=== PATIENT | male | born 2000 | race Caucasian/White ===

== ENCOUNTER 2019-06-20 16:02 | Emergency (ER) | payer BC ==
[~2019-06-20] VITALS: Ht 175.3 cm; Wt 64.9 kg
[2019-06-20 16:53] VITALS: BP 129/67
--- NOTE | 2019-06-20 17:00 | NUR ---
WANTS TO BE CHECKED BECAUSE HE'S BEEN DRINKING ALCOHOL LAST NIGHT WITH HIS ADD MEDICATION -VYVANCE. PATIENT A/OX4, BREATHING EVEN AND UNLABORED, NO SOB NOTED, NEEDS ATTENDED. KEPT COMFORTABLE.
--- NOTE | 2019-06-20 17:51 | NUR ---
Patient eloped with family member from facility. ER MD notified.
== END 2019-06-20 17:57 | disposition left against medical advice (07) ==
LOC: ER 16:04
DX: Z53.21 Procedure and treatment not carried out due to patient leaving prior to being seen by health care provider (principal); F10.129 Alcohol abuse with intoxication, unspecified; F98.8 Other specified behavioral and emotional disorders with onset usually occurring in childhood and adolescence; Z98.890 Other specified postprocedural states; Y90.9 Presence of alcohol in blood, level not specified